=== PATIENT | female | born 1995 | race Caucasian/White ===

== ENCOUNTER 2020-05-31 10:16 | Day surgery (SDC) | payer BC ==
[2020-05-26 14:16] LABS: Hemoglobin 14.5 g/dL (12.0-15.5); Mean Corpuscular HGB CONC 33.6 g/dL (32.0-36.0); Mean Corpuscular Hemoglobin 31.4 pg (27.0-33.0); Mean Corpuscular Volume 93.5 fl (81.6-98.3); Mean Platelet Volume 9.9 fl (7.4-10.4); Platelet Count 213 10x3/uL (150-450); Red Blood Cell (RBC) Count 4.62 10x6/uL (3.90-5.03)
[2020-05-26 14:33] LABS: BHCG - Serum Negative (NEGATIVE); Pregs Control Background? CLEAR/WHITE (CLR/WHITE); Pregs Control Bar Appear? YES (CONTROL BAR)
[2020-05-27 02:35] LABS: SARS-CoV-2 PCR by NAA Not Detected (NotDetected)
[2020-05-30 13:02] VITALS: BMI 21.2
[2020-05-31] MEDS ORDERED: Lidocaine 1% MPF 2 ML VIAL ONE (11:25)
[2020-05-31] MEDS ORDERED: Scopolamine 1.5 mg/72 hour Patch ONE (12:02)
[2020-05-31] MEDS ORDERED: Ondansetron PF 4 MG/2 ML Vial ONE ×2 (12:02→12:07)
[2020-05-31] MEDS ORDERED: Midazolam HCl 2 mg/2 ml Vial ONE ×2 (12:03→12:07)
[2020-05-31] MEDS ORDERED: Famotidine/PF 20 mg/2ml Vial ONE (12:03)
[2020-05-31] MEDS ORDERED: EPINEPHrine 1 MG/ML AMP ONE (12:04)
[2020-05-31] MEDS ORDERED: Bupivacaine PF 0.5% 30 ML VIAL ONE (12:05)
[2020-05-31] MEDS ORDERED: Dexamethasone 20 MG/5 ML VIAL ONE (12:07)
[2020-05-31] MEDS ORDERED: PROPOFOL 40 ML ONE (12:07)
[2020-05-31] MEDS ORDERED: Lidocaine 1% PF 5 ML VIAL ONE (12:07)
[2020-05-31] MEDS ORDERED: Fentanyl 100 MCG/2 ML VIAL ONE ×2 (12:07→14:14)
[2020-05-31] MEDS ORDERED: Rocuronium Bromide 10 MG/ML (10ML VIAL) ONE (12:07)
[2020-05-31] MEDS ORDERED: Ketorolac Tromethamine 30 MG/ML VIAL ONE (12:40)
[2020-05-31] MEDS ORDERED: Glycopyrrolate 0.2 MG/ML 5 ML SYRINGE ONE (13:32)
[2020-05-31] MEDS ORDERED: Ferric Subsulfate (ASTRINGYN) 8 GM VIAL ONE (15:17)
== END 2020-05-31 15:20 | disposition home or self-care (01) ==
LOC: CSHSDC 10:16
PROVIDERS: ATTEND Obstetrics & Gynecology
PROC: 0UBC7ZX Excision of Cervix, Via Natural or Artificial Opening, Diagnostic (ICD-10-PCS; principal; 2020-05-31)
PROC: 0U544ZZ Destruction of Uterine Supporting Structure, Percutaneous Endoscopic Approach (ICD-10-PCS; principal; 2020-05-31)
DX: N87.1 Moderate cervical dysplasia (principal); N80.8 Other endometriosis; G89.29 Other chronic pain; R10.2 Pelvic and perineal pain; F17.290 Nicotine dependence, other tobacco product, uncomplicated; Z79.899 Other long term (current) drug therapy; Z20.822 Contact with and (suspected) exposure to COVID-19
CPT/HCPCS: 84703; 85027; 86850; 86900; 86901; 87635; 88307; J0171; J0690; J1100; J1885; J2250; J2405; J2704; J3010; S0020; S0028; U0003; U0005

== ENCOUNTER 2022-09-29 10:55 | Observation (INO) | payer BC ==
[2022-09-29 12:06] LABS: #Monocytes 1.1 10x3/uL (0.0-1.1); #Neutrophils 11.5 10x3/uL (1.5-8.4); %Basophils 0.2 % (0.0-2.0); %Lymphocytes 20.9 % (18.0-47.0); %Monocytes 7.1 % (0.0-10.0); %Neutrophils 71.1 % (40.0-75.0); Hemoglobin 12.1 g/dL (12.0-15.5); Mean Corpuscular HGB CONC 35.2 g/dL (32.0-36.0); Mean Corpuscular Hemoglobin 31.3 pg (27.0-33.0); Mean Corpuscular Volume 88.9 fl (81.6-98.3); Mean Platelet Volume 9.3 fl (7.4-10.4); Platelet Count 265 10x3/uL (150-450); RBC Distribution Width 11.9 % (11.5-14.5); Red Blood Cell (RBC) Count 3.87 10x6/uL (3.90-5.03); White Blood Cell (WBC) Count 16.2 10x3/uL (3.5-10.5)
[2022-09-29] MEDS ORDERED: Metoclopramide HCl 10 MG/2 ML VIAL ONE (12:07)
[2022-09-29] MEDS ORDERED: diphenhydrAMINE 50 MG/ML VIAL ONE (12:07)
[2022-09-29] MEDS ORDERED: Ondansetron PF 4 MG/2 ML Vial ONE (12:07)
[2022-09-29 12:31] LABS: ALT (SGPT) 14 U/L (8-55); AST (SGOT) 26 U/L (5-34); Alkaline Phosphatase 53 U/L (40-110); Anion Gap 19 mmol/L (10-20); BUN (Urea Nitrogen) 6 mg/dL (7.0-18.7); Bilirubin, Total 0.9 mg/dL (0.2-1.2); CK (CPK) 200 U/L (29-168); Calc. Creatinine Clearance 0 mL/min (70-130); Calcium 8.9 mg/dL (7.8-10.44); Carbon Dioxide 17 mmol/L (22-29); Chloride 104 mmol/L (98-107); Estimated GFR 122; Globulin 2.8 g/dL (2.4-3.5); Glucose 91 mg/dL (70-105); Lipase 7 U/L (8-78); Magnesium 1.6 mg/dL (1.6-2.6); Potassium 2.8 mmol/L (3.5-5.1); Protein, Total 6.8 g/dL (6.0-8.3); Sodium 137 mmol/L (136-145)
[2022-09-29 12:51] LABS: Bilirubin Neg (Negative); Blood, Urine 10 (Negative); Clarity Cloudy (Clear); Glucose, Urine (Dipstick) Normal (Negative); Ketone, Urine 150 mg/dL (Negative); Leukocyte 500 (Negative); Nitrite Negative (Negative); Protein, Urine (Dipstick) 30 mg/dl (Neg-Trace); Specific Gravity, Urine 1.025 (1.005-1.030); Urobilinogen Normal mg/dL (Less than 2)
[2022-09-29 12:53] LABS: Bacteria/HPF 3+ HPF (None Seen); CAUTI Indications for Culture Pregnancy; Mucous/LPF 2+ LPF (<2+); RBC/HPF 0-3 HPF (0-3); WBC/HPF 21-50 HPF (0-3)
[2022-09-29 12:54] LABS: Urine Culture Reflex Yes Yes
[2022-09-29] MEDS ORDERED: cefTRIAXone (ROCEPHIN) 1 GM VIAL ONE (13:20)
[2022-09-29] MEDS ORDERED: Potassium Chloride 20 MEQ/100 ML PREMIX BAG ONE (13:20)
[2022-09-29] MEDS ORDERED: hydrALAZINE 20 MG/ML VIAL SLOW IVP PRN (15:10)
[2022-09-29 15:16] VITALS: BMI 21.2
[2022-09-29] MEDS: Promethazine HCl 25 MG/ML VIAL IM PRN (15:23)
[2022-09-29 17:11] LABS: Bilirubin Neg (Negative); Blood, Urine Negative (Negative); Clarity Clear (Clear); Glucose, Urine (Dipstick) Normal (Negative); Ketone, Urine 150 mg/dL (Negative); Leukocyte Negative (Negative); Nitrite Negative (Negative); Protein, Urine (Dipstick) 15 mg/dl (Neg-Trace); Specific Gravity, Urine 1.015 (1.005-1.030); Urobilinogen Normal mg/dL (Less than 2); pH, Urine 6.5 (5.0-9.0)
[2022-09-29 17:23] LABS: Bacteria/HPF Rare-Few HPF (None Seen); CAUTI Indications for Culture Pregnancy; Mucous/LPF Rare LPF (<2+); RBC/HPF 0-3 HPF (0-3); WBC/HPF 0-3 HPF (0-3)
[2022-09-29] MEDS: Ondansetron PF 4 MG/2 ML Vial IVP PRN (17:34)
[2022-09-29] MEDS: diphenhydrAMINE 50 MG/ML VIAL IVP PRN (19:17)
[2022-09-29] MEDS: Metoclopramide HCl 10 MG/2 ML VIAL IVP PRN (19:22)
[2022-09-29] MEDS: Lactated Ringer's 1,000 ML IV SCH (19:36)
[2022-09-29] MEDS: Potassium Chloride 20 MEQ in Premix Bag 1 BAG IVPB SCH ×3 (19:36→22:09)
[2022-09-29] MEDS: Pantoprazole 40 MG VIAL IVP SCH (21:01)
[2022-09-29] MEDS: Promethazine HCl 12.5 MG in Sodium Chloride 0.9% 50 ML IVPB PRN (21:55)
[2022-09-30] MEDS: Ondansetron PF 4 MG/2 ML Vial IVP PRN ×4 (00:37→18:27)
[2022-09-30] MEDS: Metoclopramide HCl 10 MG/2 ML VIAL IVP PRN ×4 (01:30→21:09)
[2022-09-30] MEDS: diphenhydrAMINE 50 MG/ML VIAL IVP PRN ×4 (01:31→21:16)
[2022-09-30] MEDS ORDERED: Potassium Chloride 20 MEQ in Premix Bag 1 BAG IVPB SCH (05:00)
[2022-09-30 05:04] LABS: #Monocytes 0.9 10x3/uL (0.0-1.1); #Neutrophils 8.3 10x3/uL (1.5-8.4); %Basophils 0.2 % (0.0-2.0); %Lymphocytes 19.7 % (18.0-47.0); %Monocytes 7.4 % (0.0-10.0); %Neutrophils 71.9 % (40.0-75.0); Hemoglobin 10.5 g/dL (12.0-15.5); Mean Corpuscular HGB CONC 35.4 g/dL (32.0-36.0); Mean Corpuscular Hemoglobin 31.7 pg (27.0-33.0); Mean Corpuscular Volume 89.7 fl (81.6-98.3); Mean Platelet Volume 9.7 fl (7.4-10.4); Platelet Count 210 10x3/uL (150-450); RBC Distribution Width 11.9 % (11.5-14.5); Red Blood Cell (RBC) Count 3.31 10x6/uL (3.90-5.03); White Blood Cell (WBC) Count 11.6 10x3/uL (3.5-10.5)
[2022-09-30 05:07] LABS: ALT (SGPT) 12 U/L (8-55); AST (SGOT) 18 U/L (5-34); Albumin 3.4 g/dL (3.5-5.0); Alkaline Phosphatase 41 U/L (40-110); Anion Gap 13 mmol/L (10-20); BUN (Urea Nitrogen) Less than 4 mg/dL (7.0-18.7); Bilirubin, Total 0.8 mg/dL (0.2-1.2); Calc. Creatinine Clearance 135 mL/min (70-130); Calcium 8.1 mg/dL (7.8-10.44); Carbon Dioxide 18 mmol/L (22-29); Chloride 107 mmol/L (98-107); Estimated GFR 128; Globulin 2.3 g/dL (2.4-3.5); Glucose 79 mg/dL (70-105); Potassium 2.9 mmol/L (3.5-5.1); Protein, Total 5.7 g/dL (6.0-8.3); Sodium 135 mmol/L (136-145)
[2022-09-30] MEDS: Lactated Ringer's 1,000 ML IV SCH ×2 (08:03→14:34)
[2022-09-30] MEDS: Pantoprazole 40 MG VIAL IVP SCH (21:16)
[2022-10-01] MEDS: diphenhydrAMINE 50 MG/ML VIAL IVP PRN ×4 (03:42→22:17)
[2022-10-01] MEDS: Metoclopramide HCl 10 MG/2 ML VIAL IVP PRN ×4 (03:44→22:28)
[2022-10-01 04:01] LABS: #Monocytes 0.6 10x3/uL (0.0-1.1); #Neutrophils 6.9 10x3/uL (1.5-8.4); %Basophils 0.2 % (0.0-2.0); %Eosinophils 0.1 % (0.0-6.0); %Lymphocytes 24.8 % (18.0-47.0); %Monocytes 5.9 % (0.0-10.0); Hemoglobin 11.2 g/dL (12.0-15.5); Mean Corpuscular HGB CONC 34.5 g/dL (32.0-36.0); Mean Corpuscular Hemoglobin 30.7 pg (27.0-33.0); Mean Platelet Volume 9.6 fl (7.4-10.4); Platelet Count 210 10x3/uL (150-450); RBC Distribution Width 11.9 % (11.5-14.5); Red Blood Cell (RBC) Count 3.65 10x6/uL (3.90-5.03); White Blood Cell (WBC) Count 10.2 10x3/uL (3.5-10.5)
[2022-10-01 04:20] LABS: ALT (SGPT) 12 U/L (8-55); AST (SGOT) 15 U/L (5-34); Albumin 3.4 g/dL (3.5-5.0); Alkaline Phosphatase 43 U/L (40-110); Anion Gap 16 mmol/L (10-20); BUN (Urea Nitrogen) Less than 4 mg/dL (7.0-18.7); Bilirubin, Total 0.7 mg/dL (0.2-1.2); Calc. Creatinine Clearance 132 mL/min (70-130); Calcium 8.3 mg/dL (7.8-10.44); Carbon Dioxide 14 mmol/L (22-29); Chloride 105 mmol/L (98-107); Estimated GFR 128; Globulin 2.5 g/dL (2.4-3.5); Glucose 64 mg/dL (70-105); Protein, Total 5.9 g/dL (6.0-8.3); Sodium 132 mmol/L (136-145)
[2022-10-01] MEDS: Promethazine HCl 12.5 MG in Sodium Chloride 0.9% 50 ML IVPB PRN ×3 (07:44→20:15)
[2022-10-01] MEDS: Lactated Ringer's 1,000 ML IV SCH ×3 (09:31→23:53)
[2022-10-01] MEDS: Ondansetron PF 4 MG/2 ML Vial IVP PRN ×3 (09:40→22:21)
[2022-10-01] MEDS: Pantoprazole 40 MG VIAL IVP SCH (21:27)
[2022-10-02] MEDS: Promethazine HCl 12.5 MG in Sodium Chloride 0.9% 50 ML IVPB PRN ×2 (02:28→08:34)
[2022-10-02] MEDS: diphenhydrAMINE 50 MG/ML VIAL IVP PRN (06:20)
[2022-10-02] MEDS: Ondansetron PF 4 MG/2 ML Vial IVP PRN ×2 (06:30→12:36)
[2022-10-02] MEDS: Metoclopramide HCl 10 MG/2 ML VIAL IVP PRN ×2 (06:33→12:36)
[2022-10-02 17:00] VITALS: BP 137/66; TEMP 98.4
== END 2022-10-02 17:45 | disposition home or self-care (01) ==
LOC: CSHERS 10:55 → CSHPED 15:00
PROVIDERS: ADMIT Obstetrics & Gynecology; ATTEND Obstetrics & Gynecology
DX: O21.1 Hyperemesis gravidarum with metabolic disturbance (principal); O99.282 Endocrine, nutritional and metabolic diseases complicating pregnancy, second trimester; E86.0 Dehydration; O99.112 Other diseases of the blood and blood-forming organs and certain disorders involving the immune mechanism complicating pregnancy, second trimester; D72.829 Elevated white blood cell count, unspecified; R82.90 Unspecified abnormal findings in urine; Z3A.15 15 weeks gestation of pregnancy
CPT/HCPCS: 36415; 80053; 81001; 82550; 83690; 83735; 84702; 85025; 86850; 86900; 86901; 87086; 96361; 96366; 96367; 96372; 96374; 96375; 96376; C9113; G0378; J0696; J1200; J2405; J2550; J2765; J3480; J7120

== ENCOUNTER 2022-11-21 08:07 | Emergency (ER) | payer BC ==
[2022-11-21] MEDS ORDERED: diphenhydrAMINE 50 MG/ML VIAL ONE (09:19)
[2022-11-21] MEDS ORDERED: Famotidine/PF 20 mg/2ml Vial ONE (09:20)
[2022-11-21] MEDS ORDERED: Metoclopramide HCl 10 MG/2 ML VIAL ONE (09:20)
[2022-11-21 09:30] LABS: #Basophils 0.1 10x3/uL (0.0-0.2); #Monocytes 0.8 10x3/uL (0.0-1.1); #Neutrophils 11.2 10x3/uL (1.5-8.4); %Basophils 0.3 % (0.0-2.0); %Lymphocytes 20.8 % (18.0-47.0); %Neutrophils 72.9 % (40.0-75.0); Hematocrit 40.1 % (34.9-44.5); Hemoglobin 14.2 g/dL (12.0-15.5); Mean Corpuscular HGB CONC 35.4 g/dL (32.0-36.0); Mean Corpuscular Hemoglobin 31.6 pg (27.0-33.0); Mean Corpuscular Volume 89.1 fl (81.6-98.3); Mean Platelet Volume 9.8 fl (7.4-10.4); Platelet Count 322 10x3/uL (150-450); RBC Distribution Width 12.1 % (11.5-14.5); White Blood Cell (WBC) Count 15.3 10x3/uL (3.5-10.5)
[2022-11-21 09:52] LABS: ALT (SGPT) 14 U/L (8-55); AST (SGOT) 17 U/L (5-34); Albumin 4.2 g/dL (3.5-5.0); Alkaline Phosphatase 80 U/L (40-110); Anion Gap 21 mmol/L (10-20); BUN (Urea Nitrogen) 8 mg/dL (7.0-18.7); Bilirubin, Total 0.7 mg/dL (0.2-1.2); Calc. Creatinine Clearance 0 mL/min (70-130); Calcium 9.8 mg/dL (7.8-10.44); Carbon Dioxide 17 mmol/L (22-29); Chloride 104 mmol/L (98-107); Estimated GFR 99; Globulin 3.5 g/dL (2.4-3.5); Glucose 114 mg/dL (70-105); Potassium 3.7 mmol/L (3.5-5.1); Protein, Total 7.7 g/dL (6.0-8.3); Sodium 138 mmol/L (136-145)
== END 2022-11-21 11:50 | disposition home or self-care (01) ==
LOC: CSHERS 08:07
DX: O21.0 Mild hyperemesis gravidarum (principal); O99.282 Endocrine, nutritional and metabolic diseases complicating pregnancy, second trimester; E87.20 Acidosis, unspecified; Z3A.23 23 weeks gestation of pregnancy
CPT/HCPCS: 80053; 83605; 84702; 85025; 96361; 96374; 96375; J1200; J2765; S0028

== ENCOUNTER 2023-10-04 15:34 | Outpatient (CLI) | payer BC ==
[2023-10-04 17:14] LABS: Hematocrit 41.2 % (34.9-44.5); Hemoglobin 14.3 g/dL (12.0-15.5); Mean Corpuscular HGB CONC 34.7 g/dL (32.0-36.0); Mean Corpuscular Hemoglobin 32.1 pg (27.0-33.0); Mean Corpuscular Volume 92.4 fL (81.6-98.3); Mean Platelet Volume 9.9 fL (7.4-10.4); Platelet Count 290 10x3/uL (150-450); RBC Distribution Width 13.2 % (11.5-14.5); Red Blood Cell (RBC) Count 4.46 10x6/uL (3.90-5.03); White Blood Cell (WBC) Count 7.9 10x3/uL (3.5-10.5)
[2023-10-04 17:18] LABS: BHCG - Serum Negative (NEGATIVE); Pregs Control Background? CLEAR/WHITE (CLR/WHITE); Pregs Control Bar Appear? YES (CONTROL BAR)
== END 2023-10-04 15:35 | disposition home or self-care (01) ==
LOC: CSHLAB 15:34
PROVIDERS: ATTEND Obstetrics & Gynecology
DX: Z01.812 Encounter for preprocedural laboratory examination (principal); R10.2 Pelvic and perineal pain; G89.29 Other chronic pain
CPT/HCPCS: 84703; 85027; 86850; 86900; 86901

== ENCOUNTER 2023-10-08 10:47 | Day surgery (SDC) | payer BC ==
[2023-10-04 16:00] VITALS: BMI 25.7
[2023-10-08] MEDS ORDERED: Gabapentin 300 MG CAP ONE (10:57)
[2023-10-08] MEDS ORDERED: Famotidine/PF 20 mg/2ml Vial ONE (10:58)
[2023-10-08] MEDS ORDERED: metroNIDAZOLE 500 MG (100 mL) BAG ONE (11:07)
[2023-10-08] MEDS ORDERED: Lidocaine 2% PF 5 ML VIAL ONE (12:24)
[2023-10-08] MEDS ORDERED: Fentanyl 250 MCG/5 ML VIAL ONE (12:24)
[2023-10-08] MEDS ORDERED: PROPOFOL 20 ML ONE (12:24)
[2023-10-08] MEDS ORDERED: Rocuronium Bromide 10 MG/ML (10ML VIAL) ONE (12:26)
[2023-10-08] MEDS ORDERED: Midazolam HCl 2 mg/2 ml Vial ONE (12:30)
[2023-10-08] MEDS ORDERED: CEFAZOLIN 2 GM VIAL ONE (12:32)
[2023-10-08] MEDS ORDERED: Bupivacaine PF 0.5% 30 ML VIAL ONE (12:32)
[2023-10-08] MEDS ORDERED: EPINEPHrine 1 MG/ML VIAL ONE (12:32)
[2023-10-08] MEDS ORDERED: Dexamethasone 20 MG/5 ML VIAL ONE (13:36)
[2023-10-08] MEDS ORDERED: Dexmedetomidine 200 MCG/2 ML VIAL ONE (13:36)
[2023-10-08] MEDS ORDERED: Ondansetron PF 4 MG/2 ML Vial ONE (13:36)
[2023-10-08] MEDS ORDERED: SUGAMMADEX SODIUM 200 MG/2 ML VIAL ONE (13:46)
[2023-10-08] MEDS ORDERED: fentaNYL 50 mcg/mL 1 mL Vial ONE ×2 (14:40→14:56)
[2023-10-08] MEDS ORDERED: HYDROcodone/Acetaminophen 5/325 mg Tablet ONE (15:40)
== END 2023-10-08 16:50 | disposition home or self-care (01) ==
LOC: CSHSDC 10:47
PROVIDERS: ATTEND Obstetrics & Gynecology
PROC: 0UT94ZZ Resection of Uterus, Percutaneous Endoscopic Approach (ICD-10-PCS; principal; 2023-10-08)
PROC: 0UT54ZZ Resection of Right Fallopian Tube, Percutaneous Endoscopic Approach (ICD-10-PCS; principal; 2023-10-08)
DX: N87.9 Dysplasia of cervix uteri, unspecified (principal); N72 Inflammatory disease of cervix uteri; N85.01 Benign endometrial hyperplasia; N83.8 Other noninflammatory disorders of ovary, fallopian tube and broad ligament; J45.909 Unspecified asthma, uncomplicated; F32.A Depression, unspecified; R51.9 Headache, unspecified; K38.8 Other specified diseases of appendix; Z79.899 Other long term (current) drug therapy; Z88.6 Allergy status to analgesic agent; Z79.51 Long term (current) use of inhaled steroids; Z98.890 Other specified postprocedural states
CPT/HCPCS: 88307; C9250; J0171; J0665; J1100; J2001; J2250; J2405; J2704; J3010; S0028